=== PATIENT | male | born 1960 | race Caucasian/White ===

== ENCOUNTER 2018-06-16 19:13 | Emergency (ER) | payer OTHER ==
--- NOTE | 2018-06-16 22:39 | ER Document Report ---
ED Extremity Problem, Lower - General Chief Complaint: Ankle Swelling Stated Complaint: RIGHT ANKLE/FOOT PAIN Time Seen by Provider: 06/16/18 22:37 Primary Care Provider: PRASHANTH ARRIETA MD [Primary Care Provider] - Follow up as needed Notes: Patient is a 58-year-old male that comes to the emergency department for chief complaint of right lower extremity swelling. He noticed this starting yesterday. There is some mild redness to the area and some discomfort. He denies severe pain, injury, fever/chills. He is not a diabetic. He is on Plavix. He denies history of blood clots. He does not smoke. He denies recent travel or surgery. He went to urgent care, they referred him here for a venous Doppler ultrasound of the lower extremity. TRAVEL OUTSIDE OF THE [place] IN LAST 30 DAYS: No - Related Data Allergies/Adverse Reactions: No Known Allergies Allergy (Unverified 02/28/16 12:54) Past Medical History - General Information source: Patient - Social History Smoking Status: Never Smoker Frequency of alcohol use: None Drug Abuse: None Lives with: Family Family History: Reviewed & Not Pertinent - Past Medical History Cardiac Medical History: Reports: Hx Congestive Heart Failure, Hx Coronary Artery Disease, Hx Heart Attack - Familial ischemic heart disease Endocrine Medical History: Denies: Hx Diabetes Mellitus Type 1, Hx Diabetes Mellitus Type 2 - Immunizations Hx Diphtheria, Pertussis, Tetanus Vaccination: Yes Review of Systems - Review of Systems Constitutional: No symptoms reported EENT: No symptoms reported Cardiovascular: See HPI Respiratory: No symptoms reported Gastrointestinal: No symptoms reported Genitourinary: No symptoms reported Male Genitourinary: No symptoms reported Musculoskeletal: See HPI Skin: No symptoms reported Hematologic/Lymphatic: No symptoms reported Neurological/Psychological: No symptoms reported Physical Exam - Vital signs Vitals: Temp Pulse Resp BP Pulse Ox 98.9 F 59 L 16 144/89 H 98 06/16/18 19:59 06/16/18 19:59 06/16/18 19:59 06/16/18 19:59 06/16/18 19:59 - Notes Notes: GENERAL: Alert, interacts well. No acute distress. HEAD: Normocephalic, atraumatic. EYES: Pupils equal, round, and reactive to light. Extraocular movements intact. ENT: Oral mucosa moist, tongue midline. Oropharynx unremarkable. Airway patent. Nares patent, no nasal septal hematoma, TM's intact. NECK: Full range of motion. Supple. Trachea midline. LUNGS: Clear to auscultation bilaterally, no wheezes, rales, or rhonchi. No respiratory distress. HEART: Regular rate and rhythm. No murmur ABDOMEN: Soft, non-tender. Non-distended. Bowel sounds present in all 4 quadrants. GENITOURINARY: Deferred EXTREMITIES: Right lower extremity with some edema at the ankle and foot, normal pulse and sensation, no abnormal heat, significant erythema, wound, or other concerning findings noted. BACK: no cervical, thoracic, lumbar midline tenderness. No saddle anesthesia, normal distal neurovascular exam. NEUROLOGICAL: Alert and oriented x3. Normal speech. [cranial nerves II through XII grossly intact]. PSYCH: Normal affect, normal mood. SKIN: Warm, dry, normal turgor. No rashes or lesions noted. Course - Re-evaluation Re-evalutation: Unfortunately we do not have Doppler available at the time I evaluated patient, no Doppler was completed before I saw the patient. I apologized to the patient for the inconvenience more than once. Patient does not have signs of infection, there is no severe tenderness or concerning findings to the area, however because of the lower extremity swelling unilaterally I did strongly recommend a Doppler, he was provided a prescription for this. I did discuss possibly performing anticoagulation now but patient declined. Discussed return precautions in detail with patient. He states understanding and agreement. - Vital Signs Vital signs: Temp Pulse Resp BP Pulse Ox 98.3 F 67 18 158/95 H 99 06/16/18 22:39 06/16/18 22:39 06/16/18 22:39 06/16/18 22:39 06/16/18 22:39 Discharge - Discharge Clinical Impression: Right leg swelling, Right leg pain Condition: Stable Disposition: HOME, SELF-CARE Additional Instructions: The next step is for you to have a venous Doppler ultrasound of the right lower extremity. Use the provided prescription tomorrow to have this performed. Return for any concerning or worsening symptoms including developing/spreading redness, fever/chills, severe worsening pain, pain in your chest, difficulty breathing, passing out, or any other concerning symptoms. Forms: Follow-Up Outpatient Testing Referrals: PRASHANTH ARRIETA MD [Primary Care Provider] - Follow up as needed
[2018-06-16 22:40] VITALS: BP 158/95
== END 2018-06-16 22:44 | disposition home or self-care (01) ==
LOC: ER 19:13
DX: M79.604 Pain in right leg (principal); M79.89 Other specified soft tissue disorders; M25.571 Pain in right ankle and joints of right foot; M79.671 Pain in right foot; I50.9 Heart failure, unspecified; I25.10 Atherosclerotic heart disease of native coronary artery without angina pectoris
CPT/HCPCS: 99283

== ENCOUNTER → 2018-06-17 | Outpatient (CLI) | payer OTHER ==
--- NOTE | 2018-06-17 15:08 | XCELERA REPORT ---
[address] [place] [facility] [id number] Lower Extremity Venous Evaluation Procedure: Color flow and duplex imaging of the veins of the right lower extremity as well as the left Common Femoral vein. Right Sided Venous Evaluation Normal vessel filling wall to wall, compression and augmentation as well as Colour flow down to the infrageniculate veins. Left Sided Venous Evaluation The left common femoral vein is fully compressible. Spontaneous and phasic flow is present in the left common femoral vein. Interpretation Summary No duplex evidence of DVT or obstruction in the right lower extremity nor in the left Common Femoral vein. Name: YOVANA RODRIGUEZ Age: 58 yrs Gender: Male : 1960 Patient Status: Outpatient Patient Location: Study Date: 06/17/2018 09:21 AM Reason For Study: RLE SWELLING Ordering Physician: MARK ANTHONY DILLARD Performed By: Luís Thibodeaux : MARK ANTHONY DILLARD > Kemal Jean
== END ==
LOC: SP 09:01
DX: M79.89 Other specified soft tissue disorders (principal)
CPT/HCPCS: 93971

== ENCOUNTER 2019-02-05 17:26 | Observation (INO) | payer OTHER ==
[2019-02-05 18:06] LABS: ABSOLUTE EOSINOPHILS # (AUTO) 0.5 10^3/uL (0.0-0.6); ABSOLUTE LYMPHOCYTES (AUTO) 2.5 10^3/uL (0.5-4.7); ABSOLUTE MONOCYTES (AUTO) 0.5 10^3/uL (0.1-1.4); ABSOLUTE NEUT (AUTO) 4.6 10^3/uL (1.7-8.2); BASOPHILS % (AUTO) 0.3 % (0-2); EOSINOPHILS % (AUTO) 6.2 % (0-6); HEMATOCRIT 46.7 % (37.9-51.0); HEMOGLOBIN 16.3 g/dL (13.5-17.0); LYMPHOCYTES % (AUTO) 31.1 % (13-45); MEAN CORPUSCULAR HEMOGLOBIN 31.1 pg (27.0-33.4); MEAN CORPUSCULAR VOLUME 89 fl (80-97); MONOCYTES % (AUTO) 6.2 % (3-13); PLATELET COUNT 191 10^3/uL (150-450); RED BLOOD COUNT 5.25 10^6/uL (4.35-5.55); RED CELL DISTRIBUTION WIDTH 13.3 % (11.5-14.0); SEGMENTED NEUTROPHILS % (AUTO) 56.2 % (42-78); TOTAL CELLS COUNTED % (AUTO) 100 %; WHITE BLOOD COUNT 8.2 10^3/uL (4.0-10.5)
--- NOTE | 2019-02-05 18:07 | RADIOLOGY REPORT (SQ) ---
EXAM DESCRIPTION: CHEST SINGLE VIEW COMPLETED DATE/TIME: 02/05/2019 5:54 pm REASON FOR STUDY: chest pain COMPARISON: None. EXAM PARAMETERS: NUMBER OF VIEWS: One view. TECHNIQUE: Single frontal radiographic view of the chest acquired. RADIATION DOSE: NA LIMITATIONS: None. FINDINGS: LUNGS AND PLEURA: No opacities, masses or pneumothorax. No pleural effusion. MEDIASTINUM AND HILAR STRUCTURES: No masses. Contour normal. HEART AND VASCULAR STRUCTURES: Heart normal in size. Normal vasculature. BONES: No acute findings. HARDWARE: Defibrillator. OTHER: No other significant finding. IMPRESSION: NO ACUTE RADIOGRAPHIC FINDING IN THE CHEST. TECHNICAL DOCUMENTATION: JOB ID: [id number] [employer]- All Rights Reserved Reading location - IP/workstation name: [email or web address]
[2019-02-05] MEDS ORDERED: NITROGLYCERIN 0.4 MG/TAB 25 TAB/BOTTLE SL ONE (18:08)
[2019-02-05] MEDS ORDERED: ASPIRIN 81 MG TABLET, CHEWABLE PO ONE (18:08)
[2019-02-05] MEDS ORDERED: MORPHINE SULFATE 10 MG/ML INJ IV ONE (18:09)
[2019-02-05] MEDS ORDERED: ONDANSETRON HCL INJ/PF 4 MG/2 ML SDV IV ONE (18:09)
--- NOTE | 2019-02-05 18:15 | ER Document Report ---
ED General - General Chief Complaint: Chest Pain Stated Complaint: POSSIBLE HEART ATTACK Time Seen by Provider: 02/05/19 18:08 Primary Care Provider: PRASHANTH ARRIETA MD [Primary Care Provider] - Follow up as needed TRAVEL OUTSIDE OF THE [place] IN LAST 30 DAYS: No - HPI Notes: Patient is a 59-year-old gentleman with a history of coronary artery disease and congestive heart failure presents to the emergency department for evaluation of chest pain. He states he was taking his dog for a walk when he describes a substernal tightness and chest pain, nonradiating. He had some associated shortness of breath and dizziness. He states he rested, took some nitroglycerin. Improved slightly, but not much. He states his pain at worst was an 8 out of 10, he currently puts it at a 2 or 3. He states he has not had any pain like this since he had his heart attack back in 2006. He is currently followed in [place] for his heart failure. He states he had a recent echocardiogram and some medication changes in the last month. He states right now he no longer feels dizzy, just this mild chest tightness and shortness of breath. He has not had a stress test or heart catheterization in several years. He states he is taking his medications as prescribed. - Related Data Allergies/Adverse Reactions: No Known Allergies Allergy (Unverified 02/28/16 12:54) Home Medications: Ambien 10 mg at bedtime as needed, Entresto 24/26 mg twice daily, eplerenone 25 mg daily, Repatha 140 mg weekly, Lasix 20 mg daily, Crestor 20 mg daily, Plavix 75 mg daily Past Medical History - General Information source: Patient - Social History Smoking Status: Never Smoker Family History: Reviewed & Not Pertinent Patient has suicidal ideation: No Patient has homicidal ideation: No - Past Medical History Cardiac Medical History: Reports: Hx Congestive Heart Failure, Hx Coronary Artery Disease, Hx Heart Attack - Familial ischemic heart disease Endocrine Medical History: Denies: Hx Diabetes Mellitus Type 1, Hx Diabetes Mellitus Type 2 Renal/ Medical History: Reports: Hx Kidney Stones. Denies: Hx Peritoneal Dialysis Past Surgical History: Reports: Hx Cardiac Surgery - 1 stent - Immunizations Hx Diphtheria, Pertussis, Tetanus Vaccination: Yes Review of Systems - Review of Systems Constitutional: No symptoms reported EENT: No symptoms reported Cardiovascular: See HPI Respiratory: See HPI Gastrointestinal: No symptoms reported Genitourinary: No symptoms reported Musculoskeletal: No symptoms reported Skin: No symptoms reported Neurological/Psychological: No symptoms reported Physical Exam - Vital signs Vitals: Temp Pulse Resp BP Pulse Ox 97.8 F 64 18 129/75 H 100 02/05/19 17:36 02/05/19 17:36 02/05/19 17:36 02/05/19 17:36 02/05/19 17:36 - Notes Notes: Vital signs reviewed, please refer to chart. Head is normocephalic, atraumatic. Pupils equal round, reactive to light. Neck is supple without meningismus. Heart is regular rate and rhythm. Lungs are clear to auscultation bilaterally. Abdomen is soft, nontender, normoactive bowel sounds throughout. Extremities without cyanosis, clubbing. Posterior calves are nontender. Peripheral pulses are equal. Skin is warm and dry. Patient is awake, alert, neurological exam is nonfocal. Course - Re-evaluation Re-evalutation: 02/05/19 18:15 Patient presents emergency department for evaluation of chest pain. He had EKG is obtained through triage. I am concerned about some nonspecific appearing anteroseptal changes, as well as some ST changes inferolaterally. Unfortunately do not have any old studies available for comparison. Patient was brought straight back to the room, placed on a registered nurse cardiac telemetry. He is given oxygen, subungual nitroglycerin, morphine, Zofran. Cardiac enzymes were obtained. Patient is stable, we will continue to monitor. 02/05/19 21:27 Patient chest pain-free after morphine and nitroglycerin. He is remained stable. His vital signs are unremarkable. Repeat troponin is undetectable x2. However, this is a patient who claims his pain is identical to a significant [place] that he had in the past that prompted bypass. I spoke with Dr. Davenport, he agrees this patient should be admitted. Patient had aspirin, nitroglycerin, is already on a beta-joana at home. He will be admitted for further care. - Vital Signs Vital signs: Temp Pulse Resp BP Pulse Ox 97.8 F 64 12 93/64 L 97 02/05/19 17:36 02/05/19 17:36 02/05/19 20:31 02/05/19 20:31 02/05/19 20:31 - Laboratory Result Diagrams: 02/05/19 17:40 02/05/19 17:40 Laboratory results interpreted by me: 02/05/19 02/05/19 17:40 17:40 Eos % (Auto) 6.2 H Carbon Dioxide 32 H Glucose 125 H - Diagnostic Test Radiology reviewed: Reports reviewed Radiology results interpreted by me: 02/05/19 18:15 Chest X-Ray 02/05/19 17:41 IMPRESSION: NO ACUTE RADIOGRAPHIC FINDING IN THE CHEST. - EKG Interpretation by Me Additional EKG results interpreted by me: 02/05/19 18:15 Sinus mechanism with a rate of 60 bpm. Normal axis. Nonspecific anteroseptal ST changes, ST depression laterally. There are no old studies available for comparison. Discharge - Discharge Clinical Impression: Chest pain Condition: Stable Disposition: ADMITTED OBSERVATION Admitting Provider: Ethel (Hospitalist) Unit Admitted: Telemetry Referrals: PRASHANTH ARRIETA MD [Primary Care Provider] - Follow up as needed
[2019-02-05 18:30] LABS: ALBUMIN 4.5 g/dL (3.5-5.0); ALKALINE PHOSPHATASE 79 U/L (38-126); ANION GAP 8 (5-19); ASPARTATE AMINO TRANSFERASE 30 U/L (17-59); BILIRUBIN,DIRECT 0.1 mg/dL (0.0-0.4); BILIRUBIN,TOTAL 0.7 mg/dL (0.2-1.3); BLOOD UREA NITROGEN 16 mg/dL (7-20); CALCIUM 9.6 mg/dL (8.4-10.2); CARBON DIOXIDE 32 mmol/L (22-30); CHLORIDE 101 mmol/L (98-107); CREATINE KINASE 87 U/L (55-170); GLUCOSE 125 mg/dL (75-110); POTASSIUM 3.8 mmol/L (3.6-5.0); TOTAL PROTEIN 7.5 g/dL (6.3-8.2)
[2019-02-05 18:43] LABS: CREATINE KINASE MB 1.44 ng/mL (<4.55)
[2019-02-05 18:44] LABS: TROPONIN I < 0.012 ng/mL
[2019-02-05] MEDS ORDERED: NITROGLYCERIN 2% OINTMENT 1 GM PACKET TP ONE (21:27)
[2019-02-05] MEDS ORDERED: ZOLPIDEM TARTRATE 5 MG TABLET PO PRN (21:43)
[2019-02-05] MEDS ORDERED: ONDANSETRON HCL INJ/PF 4 MG/2 ML SDV IV PRN (21:43)
[2019-02-05] MEDS ORDERED: MAG HYDROX/AL HYDROX/SIMETH SUSP 30 ML UDCUP PO PRN (21:43)
[2019-02-05] MEDS ORDERED: MAGNESIUM HYDROXIDE SUSP 30 ML UDCUP PO PRN (21:43)
[2019-02-05] MEDS ORDERED: MORPHINE SULFATE 10 MG/ML INJ IV PRN ×3 (21:50)
[2019-02-05] MEDS ORDERED: ACETAMINOPHEN 325 MG TABLET PO PRN (21:50)
[2019-02-05] MEDS ORDERED: NICOTINE 21 MG/24 HR PATCH.TD24 TD PRN (21:50)
[2019-02-05] MEDS ORDERED: HYDRALAZINE HCL INJ/PF 20 MG/1 ML SDV IV PRN (21:50)
--- NOTE | 2019-02-05 22:15 | EKG REPORT ---
SEVERITY:- ABNORMAL ECG - SINUS BRADYCARDIA ANTERIOR INFARCT, AGE INDETERMINATE BORDERLINE T ABNORMALITIES, INFERIOR LEADS : Confirmed by: Martha Cueto MD 05-Feb-2019 22:14:57
--- NOTE | 2019-02-05 22:15 | EKG REPORT ---
SEVERITY:- ABNORMAL ECG - SINUS RHYTHM ANTERIOR INFARCT, AGE INDETERMINATE BORDERLINE T ABNORMALITIES, INFERIOR LEADS PROLONGED QT INTERVAL : Confirmed by: Martha Cueto MD 05-Feb-2019 22:15:02
[2019-02-06] MEDS: FAMOTIDINE 20 MG TABLET PO SCH ×3 (00:26→21:50)
[2019-02-06] MEDS: HEPARIN SOD (PORCINE) 5,000 UNIT/ML 1 ML VIAL SUBCUT SCH ×4 (00:26→21:50)
[2019-02-06] MEDS: NITROGLYCERIN 2% OINTMENT 1 GM PACKET TP SCH ×4 (00:30→17:04)
--- NOTE | 2019-02-06 03:26 | PDOC H&P ---
History of Present Illness Admission Date/PCP: 02/05/19 21:48 PRASHANTH ARRIETA MD Patient complains of: Chest pain History of Present Illness: YOVANA LOVE is a 59 year old male who presented to the emergency room with acute chest pain. He admitted that just prior to coming to the emergency room he was walking his dog when he suddenly developed severe constant substernal chest pressure/tightness, without radiation. His pain was accompanied by moderate dyspnea and mild dizziness. His pain was worsened with exertion and was partially relieved with rest. He also tried taking nitroglycerin at home with little or no improvement. He denies other associated or accompanying signs and symptoms. He admits prior similar chest pain with his heart attack in 2006. In the emergency room he was treated with nitroglycerin and morphine with complete resolution of his chest discomfort. His initial EKG and cardiac enzymes were negative for acute myocardial injury or ischemia. In the emergency room he also had a short period of bradycardia with increased dizziness (near syncope) which resolved with a short period of Trendelenburg positioning. He was subsequently admitted to [facility] observation status for further evaluation and treatment. Past Medical History Cardiac Medical History: Reports: Congestive Heart Failure - Chronic systolic congestive heart failure, Coronary Artery Disease, Myocardial Infarction - Familial ischemic heart disease, Hyperlipidema, Hypertension Pulmonary Medical History: Denies: Asthma, Chronic Obstructive Pulmonary Disease (COPD) EENT Medical History: Denies: Cataracts, Ears - Hearing aids Neurological Medical History: Denies: Hemorrhagic CVA, Ischemic CVA Endocrine Medical History: Denies: Diabetes Mellitus Type 1, Diabetes Mellitus Type 2, Hyperthyroidism, Hypothyroidism, Obesity Renal/ Medical History: Reports: Nephrolithiasis Denies: Chronic Kidney Disease Malignancy Medical History: Reports: None GI Medical History: Denies: Cirrhosis, Crohn's Disease, Hepatitis, Ulcerative Colitis Musculoskeltal Medical History: Denies: Arthritis, Gout Skin Medical History: Denies: Eczema, Psoriasis Psychiatric Medical History: Denies: Alcohol Dependency, Substance Abuse, Tobacco Dependency Traumatic Medical History: Reports: None Hematology: Denies: Anemia, Bleeding Tendencies Infectious Medical History: Reports: None Past Surgical History Past Surgical History: Reports: Cardiac Catheterization, Coronary Stent - X1, Internal Defibrillator Social History Information Source: Patient Lives with: Spouse/Significant other Smoking Status: Never Smoker Electronic Cigarette use?: No Frequency of Alcohol Use: None Hx Recreational Drug Use: No Drugs: None Hx Prescription Drug Abuse: No - Advance Directive Resuscitation Status: Full Code Surrogate healthcare decision maker:: Maura Love Family History Family History: CAD. denies: DM, Malignancy Parental Family History Reviewed: Yes Children Family History Reviewed: No Sibling(s) Family History Reviewed.: Yes Medication/Allergy Home Medications: Cephalexin Monohydrate [Keflex 500 mg Capsule] 500 mg PO QID 5 Days capsule 02/28/16 Oxycodone HCl/Acetaminophen [Percocet 5-325 mg Tablet] 1 - 2 tab PO Q4H PRN #25 tablet 02/28/16 Promethazine HCl [Phenergan 25 mg Tablet] 1 - 2 tab PO Q6H PRN #20 tablet 02/28/16 Allergies/Adverse Reactions: No Known Allergies Allergy (Unverified 02/28/16 12:54) Review of Systems Constitutional: ABSENT: chills, fever(s) Eyes: ABSENT: visual disturbances, other - Eye pain Ears: ABSENT: hearing changes, other - Ear pain Nose, Mouth, and Throat: ABSENT: mouth pain, sore throat Cardiovascular: PRESENT: as per HPI, chest pain, dyspnea on exertion. ABSENT: edema, orthropnea, palpitations Respiratory: PRESENT: as per HPI, dyspnea. ABSENT: cough Gastrointestinal: ABSENT: abdominal pain, constipation, diarrhea, nausea, vomiting Genitourinary: ABSENT: dysuria, hematuria Musculoskeletal: ABSENT: back pain, joint swelling, muscle weakness Integumentary: ABSENT: pruritus, rash Neurological: PRESENT: as per HPI, dizziness. ABSENT: confusion, convulsions, focal weakness, memory loss, syncope Psychiatric: ABSENT: anxiety, depression Endocrine: ABSENT: cold intolerance, heat intolerance Hematologic/Lymphatic: ABSENT: easy bleeding, easy bruising Allergic/Immunologic: ABSENT: seasonal rhinorrhea Physical Exam Vital Signs: Temp Pulse Resp BP Pulse Ox 97.8 F 64 11 L 94/67 L 98 02/05/19 17:36 02/05/19 17:36 02/05/19 22:06 02/05/19 22:06 02/05/19 22:06 Intake & Output 02/03/19 02/04/19 02/05/19 23:59 23:59 23:59 Weight 66.7 kg General appearance: PRESENT: no acute distress, cooperative Head exam: PRESENT: atraumatic, normocephalic Eye exam: PRESENT: conjunctiva pink. ABSENT: conjunctival injection, scleral icterus Ear exam: PRESENT: normal external ear exam. ABSENT: bleeding, drainage Mouth exam: PRESENT: dry mucosa, neck supple Neck exam: ABSENT: thyromegaly, tracheal deviation Respiratory exam: PRESENT: clear to auscultation darren, symmetrical, unlabored Cardiovascular exam: PRESENT: RRR. ABSENT: clicks, gallop, rubs Pulses: PRESENT: normal radial pulses, normal dorsalis pedis pul Vascular exam: PRESENT: normal capillary refill. ABSENT: pallor GI/Abdominal exam: PRESENT: normal bowel sounds, soft Rectal exam: PRESENT: deferred Extremities exam: ABSENT: joint swelling, pedal edema Musculoskeletal exam: ABSENT: deformity, dislocation Neurological exam: PRESENT: alert, oriented to person, oriented to place, oriented to time, oriented to situation, CN II-XII grossly intact. ABSENT: motor sensory deficit Psychiatric exam: PRESENT: appropriate affect, normal mood Skin exam: PRESENT: dry, intact, warm. ABSENT: jaundice, rash, urticaria Results Laboratory Results: 02/05/19 17:40 02/05/19 17:40 02/05/19 02/05/19 17:40 17:40 WBC 8.2 RBC 5.25 Hgb 16.3 Hct 46.7 MCV 89 MCH 31.1 MCHC 35.0 RDW 13.3 Plt Count 191 Seg Neutrophils % 56.2 Sodium 141.4 Potassium 3.8 Chloride 101 Carbon Dioxide 32 H Anion Gap 8 BUN 16 Creatinine 1.22 Est GFR ( Amer) > 60 Glucose 125 H Calcium 9.6 Total Bilirubin 0.7 AST 30 Alkaline Phosphatase 79 Total Protein 7.5 Albumin 4.5 02/05/19 02/05/19 02/05/19 17:40 17:40 20:17 Creatine Kinase 87 CK-MB (CK-2) 1.44 Troponin I < 0.012 < 0.012 02/05/19 20:17 Creatine Kinase 90 CK-MB (CK-2) Troponin I Impressions: Chest X-Ray 02/05/19 17:41 IMPRESSION: NO ACUTE RADIOGRAPHIC FINDING IN THE CHEST. Assessment and Plan - Diagnosis (1) Chest pain Qualifiers: Chest pain type: precordial pain Qualified Code(s): R07.2 - Precordial pain Is this a current diagnosis for this admission?: Yes (2) Coronary artery disease Qualifiers: Coronary Disease-Associated Artery/Lesion type: [place] artery [place] vs. transplanted heart: [place] heart Associated angina: with unspecified angina Qualified Code(s): I25.119 - Atherosclerotic heart disease of [place] coronary artery with unspecified angina pectoris Is this a current diagnosis for this admission?: Yes (3) Chronic systolic congestive heart failure Is this a current diagnosis for this admission?: Yes (4) Hyperlipidemia Qualifiers: Hyperlipidemia type: unspecified Qualified Code(s): E78.5 - Hyperlipidemia, unspecified Is this a current diagnosis for this admission?: Yes - Plan Summary Summary: Patient is admitted to [facility] on observation status for his chest pain. He will receive routine supportive and symptomatic cares. Serial cardiac enzymes will be obtained and a cardiac stress test will be scheduled for the morning if his cardiac enzymes remain negative. He will receive topical nitroglycerin paste a nd morphine sulfate 2 to 4 mg IV every 2 hours on an as-needed basis via sliding scale to treat his chest pain. He will be placed on a cardiac diet. He will be continued on his usual home medications as soon as they are confirmed by pharmacy via his medical reconciliation profile. Further evaluation and treatment will be provided as needed based upon results of the above-mentioned studies. - Time Time Spent with patient: 25-34 minutes Medications reviewed and adjusted accordingly: Yes Anticipated discharge: Home Within: within 48 hours - Inpatient Certification Based on my medical assessment, after consideration of the patient's comorbidities, presenting symptoms, or acuity I expect that the services needed warrant INPATIENT care.: Yes I certify that my determination is in accordance with my understanding of Medicare's requirements for reasonable and necessary INPATIENT services [42 CFR 412.3e].: Yes Medical Necessity: Need Close Monitoring Due to Risk of Patient Decompensation, Need For Continuous Telemetry Monitoring, Need for Pain Control, Risk of Complication if Not Cared For in Hospital, Risk of Diagnosis Which Will Require Inpatient Eval/Care/Monitoring
[2019-02-06 03:51] LABS: CREATINE KINASE MB 1.04 ng/mL (<4.55)
[2019-02-06 04:04] LABS: TROPONIN I < 0.012 ng/mL
[2019-02-06 08:29] LABS: HEMATOCRIT 42.2 % (37.9-51.0); MEAN CORPUSCULAR HEMOGLOBIN 31.1 pg (27.0-33.4); MEAN CORPUSCULAR HGB CONC 35.5 g/dL (32.0-36.0); MEAN CORPUSCULAR VOLUME 88 fl (80-97); PLATELET COUNT 152 10^3/uL (150-450); RED BLOOD COUNT 4.82 10^6/uL (4.35-5.55); RED CELL DISTRIBUTION WIDTH 13.5 % (11.5-14.0)
--- NOTE | 2019-02-06 08:59 | PDOC PROGRESS REPORT ---
Subjective Progress Note for:: 02/06/19 Subjective:: 02/06/2019-no complaints this a.m. Reason For Visit: CHEST PAIN Physical Exam Vital Signs: Temp Pulse Resp BP Pulse Ox 97.8 F 56 L 19 107/68 97 02/06/19 07:58 02/06/19 07:58 02/06/19 07:58 02/06/19 07:58 02/06/19 07:58 Intake & Output 02/05/19 02/06/19 02/07/19 06:59 06:59 06:59 Weight 66.2 kg General appearance: PRESENT: no acute distress, well-developed, well-nourished Head exam: PRESENT: atraumatic, normocephalic Eye exam: PRESENT: conjunctiva pink, EOMI, PERRLA. ABSENT: scleral icterus Ear exam: PRESENT: normal external ear exam Mouth exam: PRESENT: moist, tongue midline Neck exam: ABSENT: carotid bruit, JVD, lymphadenopathy, thyromegaly Respiratory exam: PRESENT: clear to auscultation darren. ABSENT: rales, rhonchi, wheezes Cardiovascular exam: PRESENT: RRR. ABSENT: diastolic murmur, rubs, systolic murmur Pulses: PRESENT: normal dorsalis pedis pul Vascular exam: PRESENT: normal capillary refill GI/Abdominal exam: PRESENT: normal bowel sounds, soft. ABSENT: distended, guarding, mass, organolmegaly, rebound, tenderness Rectal exam: PRESENT: deferred Extremities exam: PRESENT: full ROM. ABSENT: calf tenderness, clubbing, pedal edema Neurological exam: PRESENT: alert, awake, oriented to person, oriented to place, oriented to time, oriented to situation, CN II-XII grossly intact. ABSENT: motor sensory deficit Psychiatric exam: PRESENT: appropriate affect, normal mood. ABSENT: homicidal ideation, suicidal ideation Skin exam: PRESENT: dry, intact, warm. ABSENT: cyanosis, rash Results Laboratory Results: 02/06/19 08:15 02/05/19 02/05/19 02/06/19 17:40 17:40 08:15 WBC 8.2 7.0 RBC 5.25 4.82 Hgb 16.3 15.0 Hct 46.7 42.2 MCV 89 88 MCH 31.1 31.1 MCHC 35.0 35.5 RDW 13.3 13.5 Plt Count 191 152 Seg Neutrophils % 56.2 Sodium 141.4 Potassium 3.8 Chloride 101 Carbon Dioxide 32 H Anion Gap 8 BUN 16 Creatinine 1.22 Est GFR ( Amer) > 60 Glucose 125 H Calcium 9.6 Total Bilirubin 0.7 AST 30 Alkaline Phosphatase 79 Total Protein 7.5 Albumin 4.5 02/05/19 02/05/19 02/05/19 17:40 17:40 20:17 Creatine Kinase 87 CK-MB (CK-2) 1.44 Troponin I < 0.012 < 0.012 02/05/19 02/05/19 02/06/19 20:17 20:17 02:15 Creatine Kinase 90 59 CK-MB (CK-2) 1.19 Troponin I Cancelled 02/06/19 02:15 Creatine Kinase CK-MB (CK-2) 1.04 Troponin I < 0.012 Impressions: Chest X-Ray 02/05/19 17:41 IMPRESSION: NO ACUTE RADIOGRAPHIC FINDING IN THE CHEST. Assessment and Plan - Diagnosis (1) Chest pain Qualifiers: Chest pain type: precordial pain Qualified Code(s): R07.2 - Precordial pain Is this a current diagnosis for this admission?: Yes Plan: 02/06/2019-troponins been negative thus far. Patient scheduled for pharmacologic stress test this a.m. we will wait for results. (2) Chronic systolic congestive heart failure Is this a current diagnosis for this admission?: Yes Plan: 02/06/2019-stable not in acute exacerbation at this time. (3) Coronary artery disease Qualifiers: Coronary Disease-Associated Artery/Lesion type: sun[place] artery [place] vs. transplanted heart: [place] heart Associated angina: with unspecified angina Qualified Code(s): I25.119 - Atherosclerotic heart disease of [place]'aq coronary artery with unspecified angina pectoris Is this a current diagnosis for this admission?: Yes Plan: 02/06/2019-continue all home medications (4) Hyperlipidemia Qualifiers: Hyperlipidemia type: unspecified Qualified Code(s): E78.5 - Hyperlipidemia, unspecified Is this a current diagnosis for this admission?: Yes Plan: 02/06/2019-continue statin - Plan Summary Summary: Patient is admitted to [facility] on observation status for his chest pain. He will receive routine supportive and symptomatic cares. Serial cardiac enzymes will be obtained and a cardiac stress test will be scheduled for the morning if his cardiac enzymes remain negative. He will receive topical nitroglycerin paste and morphine sulfate 2 to 4 mg IV every 2 hours on an as-needed basis via sliding scale to treat his chest pain. He will be placed on a cardiac diet. He will be continued on his usual home medications as soon as they are confirmed by pharmacy via his medical reconciliation profile. Further evaluation and treatment will be provided as needed based upon results of the above-mentioned studies. - Time Time Spent with patient: 15-24 minutes
[2019-02-06 09:00] LABS: ANION GAP 6 (5-19); BLOOD UREA NITROGEN 16 mg/dL (7-20); CARBON DIOXIDE 31 mmol/L (22-30); CHLORIDE 103 mmol/L (98-107); CHOLESTEROL 73.68 mg/dL (0-200); CREATINE KINASE 54 U/L (55-170); GLUCOSE 80 mg/dL (75-110); POTASSIUM 3.5 mmol/L (3.6-5.0); TRIGLYCERIDES 89 mg/dL (<150)
[2019-02-06 09:08] LABS: CREATINE KINASE MB 0.81 ng/mL (<4.55)
[2019-02-06 09:10] LABS: DIRECT LDL 34 mg/dL (<100)
[2019-02-06 09:14] LABS: TROPONIN I < 0.012 ng/mL
[2019-02-06] MEDS: CARVEDILOL 6.25 MG TABLET PO SCH ×2 (09:14→21:50)
[2019-02-06] MEDS: DOCUSATE SODIUM 100 MG CAPSULE PO SCH ×2 (09:22→17:15)
[2019-02-06] MEDS: SACUBITRIL/VALSARTAN 24 MG/26 MG TABLET PO SCH ×2 (09:23→21:54)
[2019-02-06] MEDS: FUROSEMIDE 20 MG TABLET PO SCH (09:23)
[2019-02-06] MEDS: CLOPIDOGREL BISULFATE 75 MG TABLET PO SCH (09:23)
[2019-02-06] MEDS ORDERED: POTASSIUM CHLORIDE 10 MEQ CAPSULE.ER PO ONE (10:38)
[2019-02-06] MEDS: EPLERENONE 25 MG TABLET PO SCH ×2 (10:39→17:04)
[2019-02-06] MEDS: POTASSIUM CHLORIDE 10 MEQ CAPSULE.ER PO SCH (11:15)
[2019-02-06] MEDS ORDERED: REGADENOSON INJ 0.4 MG/5 ML DISP.SYRIN IV ONE (17:38)
--- NOTE | 2019-02-06 22:03 | DRAGON STRESS TEST REPORT ---
Intravenous Lexiscan Cardiolite stress test using single photon emmision computerized tomography. Date of procedure: 04/08/2018.Ordering Provider: .Patient's status Inpatient. I ndication: Chest pain in a patient with history of coronary artery disease, ischemic cardiomyopathy, history of stents and history of AICD placement.. Coronary risk factors: Age, hypertension. Resting EKG: Sinus Rhythm. Old anteroseptal OK. Stress EKG: No changes of ischemia. The patient had no chest pain or discomfort, and there were no arrhythmias seen. Reason for termination: Protocol. Conclusions: Normal EKG and hemodynamic response to IV Lexiscan. Nuclear data: At rest the patient was given 10.92 millicuries of technetium 99m sestamibi injected intravenously. As per protocol rest non gated SPECT images were obtained. Subsequently the patient was given intravenous Lexiscan at a dose of 0.4 mg in 5 mL intravenously, followed by flush with normal saline. Subsequently the stress dose of 31.6 millicuries of technetium 99m sestamibi was injected intravenously. As per protocol stress gated images were obtained. Nuclear interpretation: Review of images showed that there is absent perfusion in both the rest and stress images involving a large area of the LV apical segments. This is consistent with large OK involving the apical LV segments with no reversible ischemia. There is also mild to moderate perfusion defect in both rest and stress images in the IV septum. There is decreased motion contraction and thickening of the IV septum consistent with prior OK with no evidence of reversible ischemia. The rest of the segments of the myocardium had normal perfusion at rest, and normal perfusion post stress with IV Lexiscan.. The rest of the myocardium segments show decreased contraction. Left ventricle is dilated in both the rest and the stress images. This is consistent with ischemic cardia myopathy T. I D. ratio was normal at 0.97. There is no transient ischemic dilatation of the left ventricle. Computer read rest, and stress left ventricular ejection fraction were 36 %, and 29 %, respectively. . Conclusion: 1. There is no scintigraphic evidence of Lexiscan induced myocardial ischemia. 2. There is scintigraphic evidence of myocardial infarction/scar of severe intensity involving a large area of the LV apical segments. There is also scintigraphic evidence of myocardial infarction of mild to moderate severity involving the interventricular septum. 3. 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 Check echo for LV ejection fraction correlation.. Recommendations: Aggressive treatment of coronary artery disease and cardiomyopathy. Aggressive risk factor modification, and treating the underlying co- morbidities. MTDD
[2019-02-07] MEDS: NITROGLYCERIN 2% OINTMENT 1 GM PACKET TP SCH ×2 (00:16→05:26)
[2019-02-07] MEDS: HEPARIN SOD (PORCINE) 5,000 UNIT/ML 1 ML VIAL SUBCUT SCH (05:25)
[2019-02-07] MEDS: CARVEDILOL 6.25 MG TABLET PO SCH (09:24)
[2019-02-07] MEDS: DOCUSATE SODIUM 100 MG CAPSULE PO SCH (09:24)
[2019-02-07] MEDS: EPLERENONE 25 MG TABLET PO SCH (09:25)
[2019-02-07] MEDS: POTASSIUM CHLORIDE 10 MEQ CAPSULE.ER PO SCH (09:25)
[2019-02-07] MEDS: FAMOTIDINE 20 MG TABLET PO SCH (09:25)
[2019-02-07] MEDS: SACUBITRIL/VALSARTAN 24 MG/26 MG TABLET PO SCH (09:25)
[2019-02-07] MEDS: FUROSEMIDE 20 MG TABLET PO SCH (09:25)
[2019-02-07] MEDS: CLOPIDOGREL BISULFATE 75 MG TABLET PO SCH (09:25)
--- NOTE | 2019-02-07 12:03 | PDOC DISCHARGE SUMMARY ---
Impression - Admit/DC Date/PCP Admission Date/Primary Care Provider: 02/05/19 21:48 PRASHANTH ARRIETA MD Discharge Date: 02/07/19 - Discharge Diagnosis (1) Chest pain Is this a current diagnosis for this admission?: Yes (2) Chronic systolic congestive heart failure Is this a current diagnosis for this admission?: Yes (3) Coronary artery disease Is this a current diagnosis for this admission?: Yes (4) Hyperlipidemia Is this a current diagnosis for this admission?: Yes - Assessment Summary: Patient was admitted to the [facility] on presentation for evaluation of chest pain need suspicion for acute coronary syndrome. On admission EKG showed no evidence of ST elevation but did show some T wave abnormalities in the inferior leads and evidence of old anterior infarct. Chest x-ray was within normal limits. Vitals showed hemodynamic stability. On lab work, troponin was very mildly elevated at 0.06 but trended down subsequently. Patient was scheduled for a Lexiscan stress test which was performed during this hospitalization. Lexiscan stress test showed no evidence of Lexiscan induced myocardial ischemia but did show fixed defects in the large portion of the apical region and the intraventricular septum which were customer operations representative of a scar from his prior myocardial infarction. Patient was discharged in stable conditions on his current regimen of Plavix, yeiu-obc-kepwhgw aspirin, beta-joana, Entresto, and rosuvastatin. Patient will be following up with his analysis specialist tomorrow as the appointment has already been set up by patient. Patient was also given a copy of his Lexiscan stress test result to present his analysis specialist. - Additional Information Resuscitation Status: Full Code Discharge Diet: Cardiac Discharge Activity: Activity As Tolerated Referrals: PRASHANTH ARRIETA MD [Primary Care Provider] - 02/27/19 11:00 am Home Medications: Aspirin [Adult Low Dose Aspirin EC] 81 mg PO DAILY 02/06/19 Carvedilol [Coreg 3.125 mg Tablet] 3.125 mg PO BID 02/06/19 Clopidogrel Bisulfate [Plavix 75 mg Tablet] 75 mg PO DAILY 02/06/19 Eplerenone [Inspra 25 mg Tablet] 25 mg PO DAILY 02/06/19 Esomeprazole Magnesium [Nexium] 20 mg PO DAILY 02/06/19 Evolocumab [Repatha Sureclick] 140 mg SQ [id number] 02/06/19 Furosemide [Lasix 20 mg Tablet] 20 mg PO DAILY 02/06/19 Melatonin 10 mg PO HSP PRN 02/06/19 Multivitamin [Multiple Vitamins] 1 tab PO DAILY 02/06/19 Nitroglycerin [Nitrostat 0.4 mg (1/150 Gr) Tabs 25/Bottle] 0.4 mg SL Q5MP PRN 02/06/19 Potassium Chloride [Klor-Con 10 Meq Capsule ER] 10 meq PO QHS 02/06/19 Rosuvastatin Calcium [Crestor 20 mg Tablet] 20 mg PO QHS 02/06/19 Sacubitril/Valsartan [Entresto 24 mg/26 mg Tablet] 1 tab PO BID 02/06/19 Zolpidem Tartrate [Ambien] 10 mg PO HSP PRN 02/06/19 History of Present Illiness History of Present Illness: YOVANA RODRIGUEZ is a 59 year old male who presented to the emergency room with acute chest pain. He admitted that just prior to coming to the emergency room he was walking his dog when he suddenly developed severe constant substernal chest pressure/tightness, without radiation. His pain was accompanied by moderate dyspnea and mild dizziness. His pain was worsened with exertion and was partially relieved with rest. He also tried taking nitroglycerin at home with little or no improvement. He denies other associated or accompanying signs and symptoms. He admits prior similar chest pain with his heart attack in 2006. In the emergency room he was treated with nitroglycerin and morphine with complete resolution of his chest discomfort. His initial EKG and cardiac enzymes were negative for acute myocardial injury or ischemia. In the emergency room he also had a short period of bradycardia with increased dizziness (near syncope) which resolved with a short period of Trendelenburg positioning. He was subsequently admitted to [facility] observation status for further evaluation and treatment. Physical Exam Vital Signs: Temp Pulse Resp BP Pulse Ox 97.9 F 65 16 117/64 98 02/07/19 07:23 02/07/19 07:23 02/07/19 07:23 02/07/19 07:23 02/07/19 07:23 Intake & Output 02/06/19 02/07/19 02/08/19 06:59 06:59 06:59 Intake Total 1000 Output Total 500 Balance 500 Weight 66.2 kg 67.2 kg General appearance: PRESENT: no acute distress, cooperative Neck exam: ABSENT: JVD Respiratory exam: PRESENT: clear to auscultation darren, symmetrical, unlabored. ABSENT: tachypnea, wheezes Cardiovascular exam: PRESENT: RRR, +S1, +S2. ABSENT: tachycardia GI/Abdominal exam: PRESENT: normal bowel sounds, soft. ABSENT: guarding, rebound, rigid, tenderness Extremities exam: ABSENT: pedal edema Neurological exam: PRESENT: alert, awake, oriented to person, oriented to place, oriented to time, oriented to situation Results Laboratory Results: WBC 7.0 10^3/uL (4.0-10.5) 02/06/19 08:15 RBC 4.82 10^6/uL (4.35-5.55) 02/06/19 08:15 Hgb 15.0 g/dL (13.5-17.0) 02/06/19 08:15 Hct 42.2 % (37.9-51.0) 02/06/19 08:15 MCV 88 fl (80-97) 02/06/19 08:15 MCH 31.1 pg (27.0-33.4) 02/06/19 08:15 MCHC 35.5 g/dL (32.0-36.0) 02/06/19 08:15 RDW 13.5 % (11.5-14.0) 02/06/19 08:15 Plt Count 152 10^3/uL (150-450) 02/06/19 08:15 Lymph % (Auto) 31.1 % (13-45) 02/05/19 17:40 [place] % (Auto) 6.2 % (3-13) 02/05/19 17:40 Eos % (Auto) 6.2 % (0-6) H 02/05/19 17:40 Baso % (Auto) 0.3 % (0-2) 02/05/19 17:40 Absolute Neuts (auto) 4.6 10^3/uL (1.7-8.2) 02/05/19 17:40 Absolute Lymphs (auto) 2.5 10^3/uL (0.5-4.7) 02/05/19 17:40 Absolute Monos (auto) 0.5 10^3/uL (0.1-1.4) 02/05/19 17:40 Absolute Eos (auto) 0.5 10^3/uL (0.0-0.6) 02/05/19 17:40 Absolute Basos (auto) 0.0 10^3/uL (0.0-0.2) 02/05/19 17:40 Seg Neutrophils % 56.2 % (42-78) 02/05/19 17:40 Sodium 139.7 mmol/L (137-145) 02/06/19 08:15 Potassium 3.5 mmol/L (3.6-5.0) L 02/06/19 08:15 Chloride 103 mmol/L (98-107) 02/06/19 08:15 Carbon Dioxide 31 mmol/L (22-30) H 02/06/19 08:15 Anion Gap 6 (5-19) 02/06/19 08:15 BUN 16 mg/dL (7-20) 02/06/19 08:15 Creatinine 1.07 mg/dL (0.52-1.25) 02/06/19 08:15 Est GFR ( Amer) > 60 (>60) 02/06/19 08:15 Est GFR (MDRD) Non-Af > 60 (>60) 02/06/19 08:15 Glucose 80 mg/dL (75-110) 02/06/19 08:15 Calcium 9.0 mg/dL (8.4-10.2) 02/06/19 08:15 Magnesium 1.8 mg/dL (1.6-2.3) 02/06/19 08:15 Total Bilirubin 0.7 mg/dL (0.2-1.3) 02/05/19 17:40 Direct Bilirubin 0.1 mg/dL (0.0-0.4) 02/05/19 17:40 Neonat Total Bilirubin Not Reportable 02/05/19 17:40 Neonat Direct Bilirubin Not Reportable 02/05/19 17:40 Neonat Indirect Bili Not Reportable 02/05/19 17:40 AST 30 U/L (17-59) 02/05/19 17:40 ALT 24 U/L (<50) 02/05/19 17:40 Alkaline Phosphatase 79 U/L (38-126) 02/05/19 17:40 Creatine Kinase 54 U/L (55-170) L 02/06/19 08:15 CK-MB (CK-2) 0.81 ng/mL (<4.55) 02/06/19 08:15 Troponin I < 0.012 ng/mL 02/06/19 08:15 Total Protein 7.5 g/dL (6.3-8.2) 02/05/19 17:40 Albumin 4.5 g/dL (3.5-5.0) 02/05/19 17:40 Triglycerides 89 mg/dL (<150) 02/06/19 08:15 Cholesterol 73.68 mg/dL (0-200) 02/06/19 08:15 LDL Cholesterol Direct 34 mg/dL (<100) 02/06/19 08:15 VLDL Cholesterol 18.0 mg/dL (10-31) 02/06/19 08:15 HDL Cholesterol 30 mg/dL (>40) L 02/06/19 08:15 TSH 1.67 uIU/mL (0.47-4.68) 02/06/19 08:15 02/05/19 02/05/19 02/05/19 17:40 20:17 20:17 CK-MB (CK-2) 1.44 1.19 Troponin I < 0.012 < 0.012 Cancelled 02/06/19 02/06/19 02:15 08:15 CK-MB (CK-2) 1.04 0.81 Troponin I < 0.012 < 0.012 Impressions: Chest X-Ray 02/05/19 17:41 IMPRESSION: NO ACUTE RADIOGRAPHIC FINDING IN THE CHEST. Plan Time Spent: Less than 30 Minutes Stroke Is this a Stroke Patient?: No Acute Heart Failure - Is this a Heart Failure Patient?: Yes Documentation of LVEF assessment?: Yes LVEF < 40%?: Yes-if yes answer questions a through e a) Discharged on ACEI?: N/A Discharged on ARNI b) Discharges on ARB?: N/A-Discharged on ARNI c) Discharged on ARNI?: Yes d) Discharged on evidence-based Beta joana(carvedilol, sustained release metoprolol succinate, or bisoprolol)?: Yes e) For LVEF <35%, discharged on Aldosterone antagonist?: Yes 3. Anticoagulant therapy for permanect/persistent/paraoxysmal Afib or Aflutter: N/A
[2019-02-07 12:07] VITALS: BP 144/65
== END 2019-02-07 12:30 | disposition home or self-care (01) ==
LOC: ER 17:26 → EH 21:48 → 3S 02-06 02:45
PROVIDERS: ADMIT Emergency Medicine; ATTEND Emergency Medicine
DX: R07.89 Other chest pain (principal); I50.22 Chronic systolic (congestive) heart failure; I25.119 Atherosclerotic heart disease of native coronary artery with unspecified angina pectoris; E78.5 Hyperlipidemia, unspecified; Z79.899 Other long term (current) drug therapy; R00.1 Bradycardia, unspecified; R55 Syncope and collapse; R94.31 Abnormal electrocardiogram [ECG] [EKG]; R06.00 Dyspnea, unspecified; I25.2 Old myocardial infarction; R79.89 Other specified abnormal findings of blood chemistry; Z79.82 Long term (current) use of aspirin; Z95.5 Presence of coronary angioplasty implant and graft; Z95.810 Presence of automatic (implantable) cardiac defibrillator; Z82.49 Family history of ischemic heart disease and other diseases of the circulatory system
CPT/HCPCS: 93005; 99285; 96374; 36415 ×2; 82553 ×2; 82550 ×2; 83735; 84443; 85025; 85027; 80048; 80053; 84484 ×2; 80061; 93017; 71045; 78452; 93010; G0378 ×4; A9500; J2785; J1644; J2270; J3490 ×5; Q9969